=== PATIENT | male | born 1950 | race Caucasian/White ===

== ENCOUNTER 2022-05-29 20:57 | Inpatient (IN) | payer OTHER, MEDICAID ==
[~2022-05-29] VITALS: Ht 180.3 cm; Wt 70.0 kg
[~2022-05-29 20:57] MED LIST: CEPH-37 PO; TRAM50TA2 PO
[2022-05-29 22:18] LABS: White Blood Cell 3.1 10^3/uL (4.4-10.8)
[2022-05-29 22:23] LABS: Hematocrit 25.1 % (41.0-53.0); Hemoglobin 8.7 g/dL (13.5-17.5); Mean Corpuscular Hemoglobin 34.8 pg (28.0-32.0); Mean Corpuscular Hgb Conc. 34.6 g/dL (32.0-36.0); Mean Corpuscular Volume 100.5 fL (80.0-100.0); Red Cell Distribution Width 14.9 % (11.8-14.3)
[2022-05-29 22:27] LABS: INR 0.95 (0.9-1.15); Partial Thromboplastin Time 28.9 sec (24.6-33.4)
[2022-05-29 22:28] LABS: Basophils % (manual) 0 (0.0-2.0); Blast Cells 0; Eosinophils % (manual) 0 (0-7); Metamyelocytes % 0; Myelocytes % 0; Promyelocytes % 0; Reactive Lymphocytes 0
[2022-05-29 22:33] LABS: Albumin 2.3 g/dL (3.4-5.0); BUN/Creatinine Ratio 19.7; Calcium 7.5 mg/dL (8.5-10.1)
[2022-05-29 22:36] LABS: Bilirubin, Total 0.2 mg/dL (0.2-1.0)
[2022-05-29 22:52] LABS: Band Neutrophils % (manual) 1; Lymphocytes % (manual) 36 (10.0-50.0); Monocytes % (manual) 11 (0-12)
[2022-05-30] MEDS ORDERED: SODIUM CHLORIDE 0.9% 1,000 ML IV ONE (01:30)
[2022-05-30] MEDS ORDERED: NITROGLYCERIN 0.4 MG SL TAB SL PRN (04:45)
[2022-05-30] MEDS ORDERED: MORPHINE SULFATE INJ 2 MG/ml SYRG IV PRN (04:45)
[2022-05-30] MEDS ORDERED: DEXTROSE (50%) 50ML SYRG IV PRN (04:45)
[2022-05-30] MEDS ORDERED: ACETAMINOPHEN 325 MG TAB PO PRN (04:45)
[2022-05-30] MEDS ORDERED: ONDANSETRON HCL 4 MG/2 ML VIAL IV PRN (04:45)
[2022-05-30 05:44] LABS: % Iron Saturation 44.9 % (20-55)
[2022-05-30] MEDS: ACCU-CHEK COMFORT CURVE STRIP VI SCH ×4 (06:33→22:08)
[2022-05-30] MEDS: InsuLIN REG 1unit/0.01ml Soln (100units/ml) SC SCH ×4 (06:33→22:00)
[2022-05-30] MEDS ORDERED: PANTOPRAZOLE 40 MG TAB PO SCH (10:00)
[2022-05-30 10:09] LABS: Alcohol, Urine < 3.0 mg/dL (0-10); Amphetamine Screen, Urine NEGATIVE (NEGATIVE); Barbiturate Scree,Urine NEGATIVE (NEGATIVE); Benzodiazephine Screen, Urine NEGATIVE (NEGATIVE); Cannabinoid Screen, Urine NEGATIVE (NEGATIVE); Cocaine Screen, Urine NEGATIVE (NEGATIVE); Opiate Scree,Urine NEGATIVE (NEGATIVE); Phencyclidine Screen, Urine NEGATIVE (NEGATIVE)
[2022-05-30 10:12] LABS: Urine Bacteria FEW /hpf (None Seen); Urine Blood 3+ /uL (Negative); Urine Specific Gravity 1.016 (1.001-1.035); Urine WBC 116 /hpf (0 - 3)
[2022-05-30 10:18] LABS: Magnesium 2.1 mg/dL (1.6-2.6)
[2022-05-30] MEDS: ASPirin 81 mg TAB PO SCH (10:29)
[2022-05-30] MEDS: ENOXAPARIN SOD 40 MG/0.4 ML SYRINGE SC SCH ×2 (10:30→10:35)
[2022-05-30] MEDS ORDERED: ALPRAZolam 0.5 MG TAB PO ONE (12:15)
[2022-05-30] MEDS ORDERED: cefTRIAXone 1GM/50ML D5W 50 ML IV ONE (12:15)
[2022-05-30 13:00] LABS: Hemoglobin 10.2 g/dL (13.5-17.5); White Blood Cell 3.7 10^3/uL (4.4-10.8)
[2022-05-30 13:02] LABS: Mean Corpuscular Hemoglobin 34.8 pg (28.0-32.0); Mean Corpuscular Hgb Conc. 35.2 g/dL (32.0-36.0); Red Blood Cells 2.93 10^6/uL (4.5-5.90); Red Cell Distribution Width 14.9 % (11.8-14.3)
[2022-05-30 13:56] LABS: Band Neutrophils % (manual) 0; Basophils % (manual) 0 (0.0-2.0); Blast Cells 0; Metamyelocytes % 0; Myelocytes % 0; Promyelocytes % 0; Reactive Lymphocytes 0
[2022-05-30] MEDS: ALPRAZolam 0.5 MG TAB PO SCH ×2 (14:00→22:16)
[2022-05-30 15:52] LABS: Eosinophils % (manual) 2 (0-7); Lymphocytes % (manual) 20 (10.0-50.0); Monocytes % (manual) 17 (0-12)
[2022-05-30] MEDS: TAMSULOSIN HYDROCHLORIDE 0.4 MG CAP PO SCH (18:08)
[2022-05-30] MEDS: HYDROcodone-ACET 5/325MG TAB PO PRN (22:50)
[2022-05-31] VITALS (7 sets, daily range): BP systolic 109–128; BP diastolic 53–74
[2022-05-31] MEDS: HYDROcodone-ACET 5/325MG TAB PO PRN ×4 (04:15→23:08)
[2022-05-31] MEDS: ACCU-CHEK COMFORT CURVE STRIP VI SCH ×4 (06:21→21:25)
[2022-05-31] MEDS: InsuLIN REG 1unit/0.01ml Soln (100units/ml) SC SCH ×4 (06:21→21:28)
[2022-05-31] MEDS: ALPRAZolam 0.5 MG TAB PO SCH ×3 (06:28→21:29)
[2022-05-31 07:10] LABS: Basophils # (auto) 0 10 ^3/uL (0-0.2); Basophils % (auto) 0.8 % (0.0-2.0); Eosinophils # (auto) 0.1 10 ^3/uL (0-0.8); Hemoglobin 9.7 g/dL (13.5-17.5); Monocytes # (auto) 1.1 10 ^3/uL (0-1.3)
[2022-05-31 07:14] LABS: Eosinophils % (auto) 1.3 % (0.0-7.0); Hematocrit 27.5 % (41.0-53.0); Lymphocytes % (auto) 17.7 % (10.0-50.0); Mean Corpuscular Hemoglobin 35.5 pg (28.0-32.0); Mean Corpuscular Hgb Conc. 35.3 g/dL (32.0-36.0); Mean Corpuscular Volume 100.5 fL (80.0-100.0); Neutrophils # (auto) 3.7 10 ^3/uL (1.6-8.6); Neutrophils % (auto) 62.2 % (37.0-80.0); Red Blood Cells 2.73 10^6/uL (4.5-5.90); Red Cell Distribution Width 14.5 % (11.8-14.3); White Blood Cell 5.9 10^3/uL (4.4-10.8)
[2022-05-31] MEDS ORDERED: PNEUMOCOCCAL VACC POLYS 25 MCG/0.5 ML VIAL IM ONE (08:00)
[2022-05-31 08:33] LABS: Albumin 2.5 g/dL (3.4-5.0); BUN/Creatinine Ratio 23.9; Bilirubin, Total 0.6 mg/dL (0.2-1.0); Calcium 7.7 mg/dL (8.5-10.1); Potassium 3.8 mmol/L (3.5-5.1); Total Protein 4.9 g/dL (6.4-8.2)
[2022-05-31] MEDS: ENOXAPARIN SOD 40 MG/0.4 ML SYRINGE SC SCH (09:54)
[2022-05-31] MEDS: ASPirin 81 mg TAB PO SCH (09:54)
[2022-05-31] MEDS: cefTRIAXone 1GM/50ML D5W 50 ML IV SCH (09:55)
[2022-05-31] MEDS: TAMSULOSIN HYDROCHLORIDE 0.4 MG CAP PO SCH (18:50)
[2022-06-01 04:49] VITALS: BP 110/72
[2022-06-01] MEDS: InsuLIN REG 1unit/0.01ml Soln (100units/ml) SC SCH ×4 (06:32→21:40)
[2022-06-01] MEDS: ACCU-CHEK COMFORT CURVE STRIP VI SCH ×4 (06:32→21:31)
[2022-06-01] MEDS: ALPRAZolam 0.5 MG TAB PO SCH ×3 (06:34→21:40)
[2022-06-01] MEDS: HYDROcodone-ACET 5/325MG TAB PO PRN ×2 (06:34→13:49)
[2022-06-01] MEDS: EMPAGLIFLOZIN 10 MG TAB PO SCH (06:34)
[2022-06-01 07:30] VITALS: BP 128/87
[2022-06-01] MEDS: ASPirin 81 mg TAB PO SCH (08:45)
[2022-06-01] MEDS: ENOXAPARIN SOD 40 MG/0.4 ML SYRINGE SC SCH (08:46)
[2022-06-01] MEDS: cefTRIAXone 1GM/50ML D5W 50 ML IV SCH (08:46)
[2022-06-01 09:00] VITALS: BP 128/87
[2022-06-01 13:00] VITALS: BP 115/58
[2022-06-01] MEDS ORDERED: PNEUMOCOCCAL VACC POLYS 25 MCG/0.5 ML VIAL IM ONE (14:00)
[2022-06-01 17:00] VITALS: BP 104/57
[2022-06-01 17:50] VITALS: BP 104/57
[2022-06-01] MEDS: TAMSULOSIN HYDROCHLORIDE 0.4 MG CAP PO SCH (18:03)
[2022-06-02 05:00] VITALS: BP 134/62
[2022-06-02] MEDS: ACCU-CHEK COMFORT CURVE STRIP VI SCH (06:12)
[2022-06-02] MEDS: InsuLIN REG 1unit/0.01ml Soln (100units/ml) SC SCH (06:13)
[2022-06-02] MEDS: ALPRAZolam 0.5 MG TAB PO SCH (06:16)
[2022-06-02] MEDS: HYDROcodone-ACET 5/325MG TAB PO PRN (06:16)
[2022-06-02] MEDS: EMPAGLIFLOZIN 10 MG TAB PO SCH (06:16)
[2022-06-02 08:25] VITALS: BP 112/60
[2022-06-02] MEDS: cefTRIAXone 1GM/50ML D5W 50 ML IV SCH (09:13)
[2022-06-02] MEDS: ENOXAPARIN SOD 40 MG/0.4 ML SYRINGE SC SCH (09:13)
[2022-06-02] MEDS: ASPirin 81 mg TAB PO SCH (09:13)
[2022-06-02 11:49] LABS: Hepatitis C Antibody Negative (Negative)
== END 2022-06-02 11:10 | disposition home health service (06) | DRG 309 ==
LOC: EDBD 20:57 → ER 20:58 → TELE 05-30 04:35 → TELE-EAST 05-31 04:30
PROVIDERS: ADMIT Nurse Practitioner; ATTEND Internal Medicine
DX: R00.1 Bradycardia, unspecified (principal); E44.0 Moderate protein-calorie malnutrition; N39.0 Urinary tract infection, site not specified; E87.1 Hypo-osmolality and hyponatremia; K56.600 Partial intestinal obstruction, unspecified as to cause; E11.65 Type 2 diabetes mellitus with hyperglycemia; E78.5 Hyperlipidemia, unspecified; E83.51 Hypocalcemia; Z20.822 Contact with and (suspected) exposure to COVID-19; M54.2 Cervicalgia; E86.0 Dehydration; F10.129 Alcohol abuse with intoxication, unspecified; I10 Essential (primary) hypertension; I44.0 Atrioventricular block, first degree; D72.819 Decreased white blood cell count, unspecified; D53.9 Nutritional anemia, unspecified; J44.9 Chronic obstructive pulmonary disease, unspecified; Y90.9 Presence of alcohol in blood, level not specified; W18.39XA Other fall on same level, initial encounter; N40.0 Benign prostatic hyperplasia without lower urinary tract symptoms; Z81.8 Family history of other mental and behavioral disorders; Z68.21 Body mass index [BMI] 21.0-21.9, adult; Z88.5 Allergy status to narcotic agent; Z79.84 Long term (current) use of oral hypoglycemic drugs; Y93.89 Activity, other specified; Y92.098 Other place in other non-institutional residence as the place of occurrence of the external cause; Y99.8 Other external cause status
CPT/HCPCS: 36415; 70450; 71045; 71250; 72125; 74176; 80053; 80061; 80307; 80320; 81001; 82962; 83036; 83540; 83550; 83690; 83735; 83880; 84443; 84484; 85007; 85025; 85027; 85610; 85730; 86803; 87340; 87426; 93005; 93017; 93306; 93886; 96360; 99291; G0378; J0696; J1815